=== PATIENT | male | born 1955 | race Hispanic/Latino ===

== ENCOUNTER 2016-06-26 21:14 | Emergency (ER) | payer MEDICARE, MEDICAID ==
[2016-06-26] MEDS ORDERED: Furosemide 40 MG/4 ML VIAL ONE (22:12)
[2016-06-26 22:15] LABS: Bilirubin Negative (Negative); Blood, Urine Negative (Negative); Glucose, Urine (Dipstick) Negative (Negative); Ketone, Urine Negative (Negative); Nitrite Negative (Negative); Protein, Urine (Dipstick) 100 mg/dL (Neg-Trace); Urobilinogen 0.2 mg/dL (0.2-1.0)
[2016-06-26 22:18] LABS: #Eosinphils 0.1 thou/uL (0.0-0.7); #Lymphocytes 0.9 thou/uL (1.20-3.40); #Monocytes 0.4 thou/uL (0.11-0.59); #Neutrophils 3.1 thou/uL (1.40-6.50); %Basophils 0.7 % (0.0-1.0); %Eosinophils 2.2 % (0.0-10.0); %Monocytes 7.9 % (0.0-10.0); Hematocrit 24.5 % (42.0-52.0); Mean Platelet Volume 7.6 fL (7.4-10.4); Red Blood Cell (RBC) Count 2.67 mill/uL (4.70-6.10); White Blood Cell (WBC) Count 4.6 thou/uL (4.8-10.8)
[2016-06-26 22:27] LABS: Troponin I 0.018 ng/mL (< 0.028)
[2016-06-26 22:28] LABS: Bacteria/HPF Rare-Few HPF (None Seen); Hyaline Casts/LPF 0-3 HYALINE CAST LPF (0-3 Hyaline); RBC/HPF 0-3 HPF (0-3); Squamous Epithelial 0-3 HPF (0-3); WBC/HPF 0-3 HPF (0-3)
[2016-06-26 22:29] LABS: ALT (SGPT) 24 U/L (0-55); AST (SGOT) 25 U/L (5-34); Alkaline Phosphatase 154 U/L (40-150); Anion Gap 15 mmol/L (10-20); Bilirubin, Total 0.5 mg/dL (0.2-1.2); Calc. Creatinine Clearance 0 mL/min (70-130); Calcium 6.5 mg/dL (7.8-10.44); Carbon Dioxide 15 mmol/L (23-31); Chloride 114 mmol/L (98-107); Estimated GFR-MDRD 11; Globulin 3.1 g/dL (2.4-3.5); Protein, Total 6.5 g/dL (5.8-8.1)
[2016-06-26 22:35] LABS: BUN (Urea Nitrogen) 112 mg/dL (8.4-25.7)
--- NOTE | 2016-06-27 07:19 | RAD ---
PORTABLE CHEST: Date: 06/26/16 An AP portable film at 2201 hours shows mild cardiomegaly and slight congestion of the upper lobe ve ssels. No lobar infiltrates or effusions seen. The trachea is midline. The heart is mildly enlarged. Incidentally noted was an old, healed fracture of the distal right clavicle. IMPRESSION: Mild congestive changes. POS: HOME
== END 2016-06-27 00:44 | disposition left against medical advice (07) ==
LOC: BURERS 21:14
DX: I13.0 Hypertensive heart and chronic kidney disease with heart failure and stage 1 through stage 4 chronic kidney disease, or unspecified chronic kidney disease (principal); N18.9 Chronic kidney disease, unspecified; I50.9 Heart failure, unspecified; N17.9 Acute kidney failure, unspecified; D64.9 Anemia, unspecified; E11.9 Type 2 diabetes mellitus without complications; E78.00 Pure hypercholesterolemia, unspecified
CPT/HCPCS: 36416; 71010; 80053; 81003; 81015; 82553; 83880; 84484; 85025; 93005; 96374; J1940

== ENCOUNTER 2017-11-05 23:10 | Emergency (ER) | payer MEDICAID, MEDICARE | END 2017-11-06 01:08 | disposition home or self-care (01) | LOC: BURERS 23:10 | DX: E86.0 Dehydration (principal); E11.9 Type 2 diabetes mellitus without complications; I10 Essential (primary) hypertension; I48.91 Unspecified atrial fibrillation; Z79.899 Other long term (current) drug therapy; Z79.01 Long term (current) use of anticoagulants | CPT/HCPCS: 94760 ==

== ENCOUNTER 2017-12-03 23:14 | Emergency (ER) | payer MEDICARE ==
[2017-12-03 23:52] LABS: #Eosinphils 0.1 thou/uL (0.0-0.7); #Lymphocytes 1.7 thou/uL (1.20-3.40); #Monocytes 0.3 thou/uL (0.11-0.59); #Neutrophils 4.1 thou/uL (1.40-6.50); %Basophils 0.6 % (0.0-1.0); %Eosinophils 1.3 % (0.0-10.0); %Lymphocytes 27.1 % (21.0-51.0); %Monocytes 4.3 % (0.0-10.0); %Neutrophils 66.7 % (42.0-75.0); Hemoglobin 11.7 g/dL (14.0-18.0); Mean Corpuscular HGB CONC 35.7 g/dL (32.0-36.0); Mean Corpuscular Volume 89.5 fL (78.0-98.0); Mean Platelet Volume 7.6 fL (7.4-10.4); Platelet Count 130 thou/uL (130-400); RBC Distribution Width 13.5 % (11.5-14.5); Red Blood Cell (RBC) Count 3.67 mill/uL (4.70-6.10); White Blood Cell (WBC) Count 6.1 thou/uL (4.8-10.8)
[2017-12-03 23:56] LABS: INR-International Normal Ratio 1.5; Prothrombin Time 17.8 SEC (12.0-14.7)
[2017-12-04 00:02] LABS: ALT (SGPT) 19 U/L (8-55); AST (SGOT) 19 U/L (5-34); Albumin 3.7 g/dL (3.4-4.8); Alkaline Phosphatase 175 U/L (40-150); Anion Gap 15 mmol/L (10-20); BUN (Urea Nitrogen) 43 mg/dL (8.4-25.7); Calc. Creatinine Clearance 0 mL/min (70-130); Calcium 9.2 mg/dL (7.8-10.44); Carbon Dioxide 28 mmol/L (23-31); Chloride 96 mmol/L (98-107); Estimated GFR-MDRD 8; Globulin 3.8 g/dL (2.4-3.5); Glucose 302 mg/dL (80-115); Potassium 4.1 mmol/L (3.5-5.1); Protein, Total 7.5 g/dL (5.8-8.1); Sodium 135 mmol/L (136-145)
--- NOTE | 2017-12-04 07:17 | RAD ---
RIGHT FOOT 3 VIEWS: Date: 12/03/17 No fracture was appreciated. Regarding the great toe, it appears intact. There is no isolated lateral view of the toe, so tiny avulsions could potentially be missed. A calcaneal spur is present. Abundan t arterial calcifications are noted. IMPRESSION: No acute bony finding. POS: HOME
== END 2017-12-04 01:50 | disposition short-term general hospital (02) ==
LOC: BURERS 23:14
DX: L03.031 Cellulitis of right toe (principal); N19 Unspecified kidney failure; E11.9 Type 2 diabetes mellitus without complications; Z79.4 Long term (current) use of insulin; I10 Essential (primary) hypertension; I48.91 Unspecified atrial fibrillation; E78.00 Pure hypercholesterolemia, unspecified; Z79.899 Other long term (current) drug therapy; Z79.01 Long term (current) use of anticoagulants
CPT/HCPCS: 36415; 80053; 85025; 85610